=== PATIENT | female | born 1965 | race Caucasian/White ===

== ENCOUNTER 2020-01-02 15:53 | Emergency (ER) | payer BC ==
[~2020-01-02] VITALS: Ht 152.4 cm; Wt 52.2 kg
[2020-01-02 16:34] VITALS: BP_SYST 123
--- NOTE | 2020-01-02 16:41 | NUR ---
Patient triaged and placed in waiting room. VSS and patient appears in no acute distress at this time. Accompanied by daughter, awaiting available bed, and MD notified of need for MSE.
--- NOTE | 2020-01-02 17:10 | NUR ---
MAHNAZ Slater examining patient in triage room.
[2020-01-02] MEDS ORDERED: KETOROLAC TROMETHAMINE 30 MG VIAL IM ONE (17:15)
--- NOTE | 2020-01-02 17:16 | NUR ---
Patient to ER chair for evaluation.
--- NOTE | 2020-01-02 17:19 | NUR ---
Patient is awake, alert, and oriented x4. Patient reports picking up a student at work 5 days ago and started experiencing back pain getting progressively worse. No other complaints at this time.
[2020-01-02 17:33] VITALS: BP_SYST 123
--- NOTE | 2020-01-02 17:33 | NUR ---
Patient given written and verbal discharge instructions and verbalizes understanding. ER MD discussed with patient the results and treatment provided. Patient in stable condition. ID arm band removed. Rx of flexiril, naprosyn given. Patient educated on pain management and to follow up with PMD. Pain Scale 10/10, ER TRI Zavala is aware. Opportunity for questions provided and answered. Medication side effect fact sheet provided.
== END 2020-01-02 17:33 | disposition home or self-care (01) ==
LOC: SED 15:53
DX: S39.012A Strain of muscle, fascia and tendon of lower back, initial encounter (principal); X50.0XXA Overexertion from strenuous movement or load, initial encounter; Y93.89 Activity, other specified; Y92.89 Other specified places as the place of occurrence of the external cause; Y99.0 Civilian activity done for income or pay
CPT/HCPCS: 81002; 81025; 96372; 99283; J1885